=== PATIENT | female | born 1990 | race Caucasian/White ===

== ENCOUNTER → 2025-06-17 10:34 | Outpatient (REF) | payer BC, SELFPAY | LOC: RAD 10:34 | PROVIDERS: ATTENDING PHYSICIAN Obstetrics & Gynecology | DX: Z31.41 Encounter for fertility testing (principal) | CPT/HCPCS: 58340; 74740 ==

== ENCOUNTER → 2025-07-16 18:17 | Outpatient (REF) | payer BC, SELFPAY | LOC: MRI 18:17 | PROVIDERS: ATTENDING PHYSICIAN Obstetrics & Gynecology | DX: E22.1 Hyperprolactinemia (principal) | CPT/HCPCS: 72197; A9575 ==